=== PATIENT | male | born 1980 | race Two or more races ===

== ENCOUNTER 2021-12-27 14:29 | Inpatient (IN) | payer OTHER ==
[~2021-12-27] VITALS: Ht 170.2 cm; Wt 121.7 kg
[2021-12-27] MEDS ORDERED: ADENOSINE 6 MG/2 ML INJ IV ONE (14:45)
[2021-12-27] MEDS ORDERED: MIDAZOLAM HCL 5 MG/ML-1ML VIAL IV ONE (14:45)
[2021-12-27] MEDS ORDERED: ASPirin 81 mg TAB PO ONE (14:45)
[2021-12-27] MEDS ORDERED: MIDAZOLAM HCL 5 MG/ML-1ML VIAL ONE (14:51)
[2021-12-27] MEDS ORDERED: ETOMIDATE (2MG/ML) 20ML VIAL IV ONE (14:59)
[2021-12-27] MEDS ORDERED: SUCCINYLCHOLINE CHLORIDE 20 MG/ML 10ML VIAL IV ONE (14:59)
[2021-12-27] MEDS ORDERED: FLUMAZENIL 0.1 MG/ML INJ 10ML MDV IV ONE ×2 (15:00→15:15)
[2021-12-27] MEDS ORDERED: NALOXONE HCL 0.4 MG/ML VIAL ONE (15:00)
[2021-12-27] MEDS: FLUMAZENIL 0.1 MG/ML INJ 10ML MDV IV ONE ×2 (15:05→15:07)
[2021-12-27] MEDS ORDERED: NALOXONE HCL 0.4 MG/ML VIAL IV ONE ×2 (15:15)
[2021-12-27 15:20] LABS: Basophils # (auto) 0 10 ^3/uL (0-0.2); Basophils % (auto) 0.4 % (0.0-2.0); Eosinophils # (auto) 0.2 10 ^3/uL (0-0.8); Eosinophils % (auto) 4.7 % (0.0-7.0); Hematocrit 32.6 % (41.0-53.0); Hemoglobin 10.3 g/dL (13.5-17.5); Lymphocytes # (auto) 0.8 10 ^3/uL (0.4-5.4); Lymphocytes % (auto) 25.7 % (10.0-50.0); Mean Corpuscular Hgb Conc. 31.6 g/dL (32.0-36.0); Mean Corpuscular Volume 98.1 fL (80.0-100.0); Monocytes # (auto) 0.3 10 ^3/uL (0-1.3); Monocytes % (auto) 10.3 % (0.0-12.0); Neutrophils # (auto) 1.9 10 ^3/uL (1.6-8.6); Neutrophils % (auto) 58.9 % (37.0-80.0); Nucleated Red Blood Cells % 0.1 %; Red Blood Cells 3.33 10^6/uL (4.5-5.90); Red Cell Distribution Width 16.5 % (11.8-14.3); White Blood Cell 3.2 10^3/uL (4.4-10.8)
[2021-12-27] MEDS ORDERED: NOREPINEPHRINE 8 MG/250ML KIT 250 ML IV ONE (15:25)
[2021-12-27] MEDS ORDERED: LABETALOL HCL 200 MG TAB PO ONE (15:30)
[2021-12-27] MEDS: NOREPINEPHRINE 8 MG/250ML KIT 250 ML IV SCH (15:30)
[2021-12-27] MEDS ORDERED: MORPHINE SULFATE INJ 2 MG/ml SYRG IV PRN ×2 (15:45→17:45)
[2021-12-27] MEDS ORDERED: AMIODARONE HCL 150 MG in D5W 5% 100 ML IV ONE (15:45)
[2021-12-27] MEDS ORDERED: NITROGLYCERIN 0.4 MG SL TAB SL PRN ×2 (15:45→17:45)
[2021-12-27] MEDS ORDERED: AMIODARONE 450mg/250ml AE 250 ML IV ONE (15:46)
[2021-12-27] MEDS ORDERED: AMIODARONE 450mg/250ml AE 250 ML IV SCH ×2 (16:00→22:00)
[2021-12-27] MEDS ORDERED: ENOXAPARIN SOD 150 MG/1 ML SYRINGE SC ONE (16:00)
[2021-12-27] MEDS ORDERED: MILRINONE 20MG/100ML 100 ML IV SCH (16:30)
[2021-12-27] MEDS ORDERED: THIAMINE 100mg/ml INJ (200mg/2ml VIAL) IV ONE (17:45)
[2021-12-27] MEDS ORDERED: MIDAZOLAM HCL 2MG/2ML 2ml VIAL (1mg/ml) IV PRN (17:45)
[2021-12-27 17:46] LABS: Potassium 4.7 mmol/L (3.5-5.1)
[2021-12-27 17:47] LABS: Albumin 3.1 g/dL (3.4-5.0); BUN/Creatinine Ratio 18.4; Bilirubin, Total 5.1 mg/dL (0.2-1.0); Calcium 8.2 mg/dL (8.5-10.1); Magnesium 2.6 mg/dL (1.6-2.6); Total Protein 6.9 g/dL (6.4-8.2)
[2021-12-27 19:09] LABS: Urine Amorphous Crystal FEW /hpf (None Seen); Urine Bacteria FEW /hpf (None Seen); Urine Blood Negative /uL (Negative); Urine Hyaline Cast FEW /lpf (0 - 2); Urine Mucus FEW (None Seen); Urine Specific Gravity 1.022 (1.001-1.035); Urine WBC 6 /hpf (0 - 3)
[2021-12-27 19:16] LABS: Alcohol, Urine < 3.0 mg/dL (0-10); Amphetamine Screen, Urine POSITIVE (NEGATIVE); Barbiturate Scree,Urine NEGATIVE (NEGATIVE); Benzodiazephine Screen, Urine POSITIVE (NEGATIVE); Cannabinoid Screen, Urine NEGATIVE (NEGATIVE); Cocaine Screen, Urine NEGATIVE (NEGATIVE); Opiate Scree,Urine NEGATIVE (NEGATIVE); Phencyclidine Screen, Urine NEGATIVE (NEGATIVE)
[2021-12-27] MEDS ORDERED: DIGOXIN (250MCG/ML) 2 ML AMPULE IV ONE ×2 (20:00→22:00)
[2021-12-28] MEDS ORDERED: ALBUMIN 5% 250 ML IV ONE (01:30)
[2021-12-28 05:12] LABS: Basophils # (auto) 0.1 10 ^3/uL (0-0.2); Basophils % (auto) 1.2 % (0.0-2.0); Eosinophils # (auto) 0.1 10 ^3/uL (0-0.8); Hematocrit 45.3 % (41.0-53.0); Hemoglobin 14.9 g/dL (13.5-17.5); Lymphocytes # (auto) 1.2 10 ^3/uL (0.4-5.4); Lymphocytes % (auto) 21.1 % (10.0-50.0); Mean Corpuscular Hemoglobin 31.6 pg (28.0-32.0); Mean Corpuscular Hgb Conc. 32.9 g/dL (32.0-36.0); Monocytes # (auto) 0.8 10 ^3/uL (0-1.3); Monocytes % (auto) 14.7 % (0.0-12.0); Neutrophils # (auto) 3.4 10 ^3/uL (1.6-8.6); Nucleated Red Blood Cells % 0.2 %; Red Blood Cells 4.72 10^6/uL (4.5-5.90); Red Cell Distribution Width 15.9 % (11.8-14.3); White Blood Cell 5.7 10^3/uL (4.4-10.8)
[2021-12-28 05:27] LABS: BUN/Creatinine Ratio 21.2; Calcium 8.6 mg/dL (8.5-10.1); Potassium 4.5 mmol/L (3.5-5.1)
[2021-12-28] MEDS ORDERED: ENOXAPARIN SOD 40 MG/0.4 ML SYRINGE SC SCH (10:00)
[2021-12-28] MEDS ORDERED: DIGOXIN (250MCG/ML) 2 ML AMPULE IV SCH (10:00)
[2021-12-28] MEDS ORDERED: ENOXAPARIN SOD 150 MG/1 ML SYRINGE SC SCH (10:00)
[2021-12-28] MEDS ORDERED: HEPARIN DRIP/D5W 100UNITS/ML 250 ML IV SCH (10:45)
[2021-12-28] MEDS: THIAMINE 100mg/ml INJ (200mg/2ml VIAL) IV SCH (11:31)
[2021-12-28 14:48] LABS: INR 1.58 (0.9-1.15); Partial Thromboplastin Time 59.3 sec (24.6-33.4)
[2021-12-28 14:52] LABS: Albumin 3.3 g/dL (3.4-5.0); Calcium 8.8 mg/dL (8.5-10.1); Potassium 4.3 mmol/L (3.5-5.1)
[2021-12-28 14:56] LABS: BUN/Creatinine Ratio 22.2; Total Protein 6.9 g/dL (6.4-8.2)
[2021-12-28] MEDS: NOREPINEPHRINE 8 MG/250ML KIT 250 ML IV SCH (15:30)
[2021-12-28 18:00] VITALS: BP 125/70
[2021-12-28] MEDS ORDERED: FURO1TAB32 PO (18:41)
[2021-12-28] MEDS ORDERED: FURO1TAB31 PO (18:41)
[2021-12-28] MEDS ORDERED: SACU1TAB PO (18:42)
[2021-12-28] MEDS ORDERED: APIX5TAB PO (18:42)
[2021-12-28 20:10] VITALS: BP 115/71
[2021-12-28] MEDS: MAGNESIUM OXIDE 400 MG TAB PO SCH (21:22)
[2021-12-28] MEDS: AMIODARONE HCL 200 MG TAB PO SCH (21:22)
[2021-12-28] MEDS: APIXABAN 5 MG TAB PO SCH (21:22)
[2021-12-28 22:00] VITALS: BP 115/71
[2021-12-29] MEDS ORDERED: LABETALOL HCL 5 MG/ML 4ML SYRINGE IV ONE (04:00)
[2021-12-29 05:00] VITALS: BP 126/81
[2021-12-29 06:42] LABS: Calcium 8.5 mg/dL (8.5-10.1); Potassium 4.1 mmol/L (3.5-5.1)
[2021-12-29 06:47] LABS: BUN/Creatinine Ratio 24.2; Bilirubin, Total 4.7 mg/dL (0.2-1.0); Total Protein 6.8 g/dL (6.4-8.2)
[2021-12-29 08:30] VITALS: BP 118/69
[2021-12-29] MEDS: AMIODARONE HCL 200 MG TAB PO SCH (10:00)
[2021-12-29] MEDS ORDERED: FUROSEMIDE 20 MG TAB PO SCH (10:00)
[2021-12-29] MEDS ORDERED: CARVEDILOL 3.125 MG TAB PO ONE (11:45)
[2021-12-29] MEDS: THIAMINE 100mg/ml INJ (200mg/2ml VIAL) IV SCH (12:00)
[2021-12-29] MEDS: APIXABAN 5 MG TAB PO SCH (12:01)
[2021-12-29] MEDS: MAGNESIUM OXIDE 400 MG TAB PO SCH (12:02)
[2021-12-29] MEDS ORDERED: MAGN241.4 PO (12:21)
[2021-12-29] MEDS ORDERED: APIX5TAB PO (12:21)
[2021-12-29] MEDS ORDERED: CAR3125T PO (12:21)
[2021-12-29] MEDS ORDERED: FUR20T PO (12:21)
[2021-12-29] MEDS ORDERED: SACU1TAB PO (12:21)
[2021-12-29] MEDS ORDERED: AMIO200T33 PO (12:21)
[2021-12-29 12:30] VITALS: BP 118/81
[2021-12-29 14:06] VITALS: BP 124/74
[2021-12-29] MEDS ORDERED: CARVEDILOL 3.125 MG TAB PO SCH (22:00)
[2021-12-30] MEDS ORDERED: DIGOXIN 0.125 MG TAB PO SCH (10:00)
== END 2021-12-29 15:11 | disposition home or self-care (01) | DRG 194 ==
LOC: ER 14:29 → TELE 17:39 → TELE-WESTW 12-28 17:34
PROVIDERS: ADMIT Registered Nurse; ATTEND Internal Medicine Nephrology
PROC: 05HF33Z Insertion of Infusion Device into Left Cephalic Vein, Percutaneous Approach (ICD-10-PCS; principal; 2021-12-28)
PROC: B54NZZA Ultrasonography of Left Upper Extremity Veins, Guidance (ICD-10-PCS; 2021-12-28)
DX: I50.43 Acute on chronic combined systolic (congestive) and diastolic (congestive) heart failure (principal); I21.A1 Myocardial infarction type 2; G93.41 Metabolic encephalopathy; I27.29 Other secondary pulmonary hypertension; D63.8 Anemia in other chronic diseases classified elsewhere; D69.6 Thrombocytopenia, unspecified; I31.3 Pericardial effusion (noninflammatory); I42.7 Cardiomyopathy due to drug and external agent; I47.1 Supraventricular tachycardia; E66.01 Morbid (severe) obesity due to excess calories; F14.90 Cocaine use, unspecified, uncomplicated; I45.10 Unspecified right bundle-branch block; K70.30 Alcoholic cirrhosis of liver without ascites; Z20.822 Contact with and (suspected) exposure to COVID-19; F15.10 Other stimulant abuse, uncomplicated; I42.0 Dilated cardiomyopathy; N18.30 Chronic kidney disease, stage 3 unspecified; Z68.41 Body mass index [BMI] 40.0-44.9, adult; R73.03 Prediabetes
CPT/HCPCS: 36415; 71045; 80048; 80053; 80162; 80307; 80320; 81001; 82306; 83036; 83735; 83880; 84443; 84484; 85025; 85379; 85610; 85730; 92960; 93005; 93306; 93458; 93886; 96365; 96375; 99291; G0378; J0330; J2250; J7060